=== PATIENT | male | born 1925 | race Caucasian/White ===

== ENCOUNTER 2016-05-28 16:43 | Emergency (ER) | payer MEDICARE, OTHER ==
[2016-05-28 17:01] VITALS: BP 142/73
[2016-05-28 17:50] LABS: CHLORIDE,CL 104 mmol/L (98-115); SODIUM,NA 142 mmol/L (136-145)
--- NOTE | 2016-05-28 17:59 | EDM.PDOC ---
ED HPI RENAL/ - General Chief Complaint: Genitourinary Problem Stated Complaint: hematuria Time Seen by Provider: 05/28/16 17:35 Source of Information: Reports: Patient History Limitations: Reports: No limitations - History of Present Illness INITIAL COMMENTS - FREE TEXT/NARRATIVE: Patient presents with hematuria. He noticed this yesterday and continuing this morning. 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 He has a known history of prostate cancer; he isn't sure how long he's had it but guesses at least a year. He has been to [place] but not sure if he's seen a Urologist or if he's had any treatment for the cancer. He did just last week have a bone scan to look for metastasis which he was told was clear. His says they were told it doesn't seem to be spreading. Pt doesn't have any pain at all, just the hematuria. He hasn't noticed any blood in stools. - Related Data Allergies/ADRs: Allergies Allergy/AdvReac Type Severity Reaction Status Date / Time No Known Drug Allergies Allergy Other Verified 05/28/16 17:02 Home Meds: Home Meds Aspirin [Halfprin] 81 mg PO DAILY 07/25/13 [History] Omeprazole [Prilosec] 20 mg PO BEDTIME 07/25/13 [History] Cyanocobalamin (Vitamin B-12) [B-12] 500 mcg PO FREDDIE 12/21/13 [History] Insulin Aspart [Novolog Flexpen] 8 units SUBCUT ACBREAKFAST 09/22/14 [History] Insulin Detemir [Levemir Flextouch] 15 units SQ BID 05/28/16 [History] Metoclopramide [Reglan] 10 mg PO QIDACANDBED 05/28/16 [History] Past Medical History Other Oncologic History: Patient states history of cancer but doesn't remember what kind. Had abdominal surgery for it. Social & Family History - Tobacco Use Smoking Status *Q: Former Smoker Years of Tobacco use: 50 Used Tobacco, but Quit: No Second Hand Smoke Exposure: No - Alcohol Use Days Per Week of Alcohol Use: 7 Number of Drinks Per Day: 1 Total Drinks Per Week: 7 - Recreational Drug Use Recreational Drug Use: No - Living Situation & Occupation Living situation: Reports: Occupation: retired ED ROS GENERAL - Review of Systems Review Of Systems: See Below Constitutional: Denies: fever, chills HEENT: Denies: Throat pain Respiratory: Denies: Shortness of Breath, Cough Cardiovascular: Reports: Edema (sometimes but not severe). Denies: Chest pain, Syncope GI/Abdominal: Reports: Decreased appetite (has noticed this for awhile and is taking Reglan). Denies: Abdominal pain, Constipation, Diarrhea : Reports: hematuria. Denies: dysuria, flank pain, pain Musculoskeletal: Reports: no symptoms Skin: Denies: cyanosis, jaundice, mottled, pallor, diaphoresis Neurological: Denies: Confusion, Dizziness, Headache Psychiatric: Denies: Agitation, Anxiety, Confusion Hematologic/Lymphatic: Denies: anemia, easy bleeding (no blood thinners) ED EXAM, RENAL/ - Physical Exam Exam: See Below Exam Limited By: No limitations General Appearance: alert, WD/WN, no apparent distress Eye Exam: bilateral eye: EOMI, normal inspection, PERRL Ears: normal external exam Nose: normal inspection, no blood Throat/Mouth: Normal inspection, Normal lips, Normal voice, No airway compromise Head: atraumatic, normocephalic Respiratory/Chest: no respiratory distress, lungs clear, normal breath sounds, no accessory muscle use Cardiovascular: regular rate, rhythm, no edema, no murmur GI/Abdominal: normal bowel sounds, soft, non tender, no organomegaly, no distention Rectal (Males) Exam: Normal rectal tone, BPH, Heme - stool, Other (Prostate is significantly enlarged but not boggy or nodular). No: Black stool, Bloody Stool , Decreased rectal tone, Fecal impaction, Hemorrhoids, Prostate nodule, Tenderness Back Exam: No: CVA tenderness (L), CVA tenderness (R) Extremities: normal inspection, normal range of motion, non-tender, no pedal edema Neurological: alert, oriented, normal cognition, no motor/sensory deficits Psychiatric: normal affect, normal mood Skin Exam: Warm, Dry, Intact, Normal color, No rash Course - Vital Signs Last Recorded V/S: Last Vital Signs Temp 97.7 F 05/28/16 16:58 Pulse 102 H 05/28/16 16:58 Resp 20 05/28/16 16:58 BP 142/73 H 05/28/16 16:58 Pulse Ox 93 L 05/28/16 16:58 - Orders/Labs/Meds Orders: Active Orders 24 hr Category Date Time Status BASIC METABOLIC PANEL,BMP [CHEM] Stat Lab 05/28/16 17:20 Received CBC WITH AUTO DIFF [HEME] Stat Lab 05/28/16 17:20 Results MANUAL DIFFERENTIAL QA/NC [HEME] Stat Lab 05/28/16 17:20 Results UA W/MICROSCOPIC [URIN] Stat Lab 05/28/16 17:18 Uncollected Labs: Laboratory Tests 05/28/16 Range/Units 17:20 WBC 9.4 (5.0-10.0) 10^3/uL RBC 4.47 L (4.50-6.00) 10^6/uL Hgb 11.8 L (13.0-17.0) g/dL Hct 36.2 L (40.0-52.0) % MCV 81.0 L (82.0-92.0) fL MCH 26.4 L (27.0-31.0) pg MCHC 32.6 (32.0-36.0) g/dL RDW 15.7 H (11.5-14.5) % Plt Count 195 (150-300) 10^3/uL MPV 9.2 (7.4-10.4) fL Add Manual Diff Yes - Re-Assessments/Exams Free Text/Narrative Re-Assessment/Exam: 05/28/16 18:19 Hg 11.8; other labs and hemoccult are normal. Discussed findings with pt and his . Will culture urine since there was too much blood to determine UTI or not. Since he doesn't know if he's seen a urologist we will find out some of this tomorrow and try to get him in with one; I presume he has seen on in [place] when he was up there. Pt discharged in stable condition. Departure - Departure Time of Disposition: 18:09 Disposition: Home, Self-Care 01 Condition: good Clinical Impression: Gross hematuria, Prostate cancer Forms: ED Department Discharge Additional Instructions: 1. You need to see a Urologist if this blood in the urine continues. We will try to find out who the urologist you saw in [place] is. We will call you about seeing them in the near future. 2. If you start feeling very weak or faint you should see a doctor or return to ER. - My Orders Last 24 Hours: My Active Orders 05/28/16 17:18 UA W/MICROSCOPIC [URIN] Stat 05/28/16 17:20 BASIC METABOLIC PANEL,BMP [CHEM] Stat CBC WITH AUTO DIFF [HEME] Stat MANUAL DIFFERENTIAL QA/NC [HEME] Stat - Assessment/Plan Last 24 Hours: My Active Orders 05/28/16 17:18 UA W/MICROSCOPIC [URIN] Stat 05/28/16 17:20 BASIC METABOLIC PANEL,BMP [CHEM] Stat CBC WITH AUTO DIFF [HEME] Stat MANUAL DIFFERENTIAL QA/NC [HEME] Stat
== END 2016-05-28 18:25 | disposition home or self-care (01) ==
LOC: KA.ED 16:43
DX: R31.0 Gross hematuria (principal); C61 Malignant neoplasm of prostate; Z79.82 Long term (current) use of aspirin; Z79.4 Long term (current) use of insulin; Z87.891 Personal history of nicotine dependence
CPT/HCPCS: 36415; 80048; 81001; 82272; 84153; 85025; 87086; 99283

== ENCOUNTER 2016-05-30 09:50 | Emergency (ER) | payer MEDICARE, OTHER ==
[2016-05-30 09:58] VITALS: BP 154/76
[2016-05-30] MEDS ORDERED: cefTRIAXone 1 GM in Sodium Chloride 0.9% 50 ML IV ONE (10:52)
[2016-05-30] MEDS ORDERED: cefTRIAXone 1 GM Vial ONE ×2 (11:02→11:05)
[2016-05-30] MEDS ORDERED: Lidocaine 1% 20 ML MDV ONE (11:07)
--- NOTE | 2016-05-30 11:15 | EDM.PDOC ---
ED HPI RENAL/ - General Chief Complaint: Genitourinary Problem Stated Complaint: blood in urine Time Seen by Provider: 05/30/16 10:30 Source of Information: Reports: Patient, Family History Limitations: Reports: No limitations - History of Present Illness INITIAL COMMENTS - FREE TEXT/NARRATIVE: PT DEVELOPED BLOOD IN URINE SEVERAL DAYS AGO. SEEN HERE IN ER /4. NOW WITH DYSURIA, BUT DENIES ABD PAIN, FEVER, N/V/D, BLOOD IN STOOL, TESTICULAR PAIN, FLANK PAIN, OR CHANGE IN MEDICATION. PER PATIENT AND FAMILY, THEY DECIDED 7 YEARS AGO TO NOT UNDERGO ANY INTERVENTION FOR PROSTATE CANCER. Timing/Duration: Reports: Day(s): Location: Reports: urethral Quality: Reports: burning Severity: mild Worsens with: Reports: urinating Associated Symptoms: Reports: burning, dysuria, frequency, urgency, voiding small amounts - Related Data Allergies/ADRs: Allergies Allergy/AdvReac Type Severity Reaction Status Date / Time No Known Drug Allergies Allergy Other Verified 05/30/16 10:29 Home Meds: Home Meds Aspirin [Halfprin] 81 mg PO DAILY 07/25/13 [History] Omeprazole [Prilosec] 20 mg PO BEDTIME 07/25/13 [History] Cyanocobalamin (Vitamin B-12) [B-12] 500 mcg PO FREDDIE 12/21/13 [History] Insulin Aspart [Novolog Flexpen] 8 units SUBCUT ACBREAKFAST 09/22/14 [History] Insulin Detemir [Levemir Flextouch] 15 units SQ BID 05/28/16 [History] Metoclopramide [Reglan] 10 mg PO QIDACANDBED 05/28/16 [History] Ciprofloxacin HCl [Cipro] 500 mg PO BID #20 tablet 05/30/16 [Rx] Past Medical History HEENT History: Reports: Impaired vision Genitourinary History: Reports: Other (see below) Other Genitourinary History: hematuria, h/o prostate ca Musculoskeletal History: Reports: Arthritis Endocrine/Metabolic History: Reports: Diabetes, type II Hematologic History: Reports: B12 deficiency Oncologic (Cancer) History: Reports: Prostate Other Oncologic History: Patient states history of cancer but doesn't remember what kind. Had abdominal surgery for it. - Past Surgical History HEENT Surgical History: Reports: None Male Surgical History: Reports: Other (see below) Other Male Surgeries/Procedures: cystoscopy Musculoskeletal Surgical History: Reports: None Social & Family History - Family History Family Medical History: Noncontributory - Tobacco Use Smoking Status *Q: Former Smoker Years of Tobacco use: 50 Used Tobacco, but Quit: No Second Hand Smoke Exposure: No - Caffeine Use Caffeine Use: Reports: Coffee - Alcohol Use Days Per Week of Alcohol Use: 7 Number of Drinks Per Day: 1 Total Drinks Per Week: 7 - Recreational Drug Use Recreational Drug Use: No - Living Situation & Occupation Living situation: Reports: Occupation: retired ED ROS GENERAL - Review of Systems Review Of Systems: ROS reveals no pertinent complaints other than HPI. Constitutional: Reports: no symptoms HEENT: Reports: No symptoms Respiratory: Reports: No Symptoms Cardiovascular: Reports: No symptoms Endocrine: Reports: no symptoms GI/Abdominal: Reports: No symptoms. Denies: Abdominal pain : Reports: dysuria, frequency, hematuria, urgency. Denies: flank pain Musculoskeletal: Reports: no symptoms Skin: Reports: no symptoms Neurological: Reports: No Symptoms Psychiatric: Reports: No symptoms Hematologic/Lymphatic: Reports: no symptoms Immunologic: Reports: no symptoms ED EXAM, RENAL/ - Physical Exam Exam: See Below Exam Limited By: No limitations General Appearance: alert, WD/WN, no apparent distress Nose: normal inspection, no blood Throat/Mouth: Normal inspection, Normal oropharynx, No airway compromise Head: atraumatic, normocephalic Neck: normal inspection Respiratory/Chest: no respiratory distress, lungs clear, normal breath sounds, no accessory muscle use, chest non-tender Cardiovascular: regular rate, rhythm, no murmur GI/Abdominal: normal bowel sounds, soft, non tender, no organomegaly, no distention, no abnormal bruit, no mass (Male) Exam: No hernia, Normal inspection Back Exam: normal inspection. No: CVA tenderness (L), CVA tenderness (R) Extremities: normal inspection, no pedal edema Neurological: alert, oriented, normal cognition Psychiatric: normal affect, normal mood Skin Exam: Warm, Dry, Intact, Normal color, No rash Lymphatic: no adenopathy Course - Vital Signs Last Recorded V/S: Last Vital Signs Temp 97.8 F 05/30/16 09:56 Pulse 106 H 05/30/16 09:56 Resp 14 05/30/16 09:56 BP 154/76 H 05/30/16 09:56 Pulse Ox 94 L 05/30/16 09:56 - Orders/Labs/Meds Orders: Active Orders 24 hr Category Date Time Status CULTURE URINE [RM] Stat Lab 05/30/16 10:52 Ordered Code Status [Resuscitation Status] Stat Resus Stat 05/30/16 10:31 Ordered Labs: Laboratory Tests 05/30/16 Range/Units 10:00 Specimen Type Urinvoid Urine Color Red H (YELLOW) Urine Appearance Turbid H (CLEAR) Urine pH >= 9.0 (5.0-9.0) Ur Specific Otto <= 1.005 (1.005-1.030) Urine Protein >=300 H (NEGATIVE) mg/dL Urine Glucose (UA) 250 H (NEGATIVE) mg/dL Urine Ketones 80 H (NEGATIVE) mg/dL Urine Occult Blood Large H (NEGATIVE) Urine Nitrite Positive H (NEGATIVE) Urine Bilirubin Large H (NEGATIVE) Urine Urobilinogen >=8.0 H (0.2-1.0) E.U./dL Ur Leukocyte Esterase Large H (NEGATIVE) Urine RBC Packed /HPF Urine WBC Semi-packed /HPF Ur Epithelial Cells Occasional /LPF Other Crystals Few /HPF Urine Bacteria Moderate H (NONE TO FEW) /HPF Hyaline Casts Few H (NEGATIVE) /LPF Meds: Medications Discontinued Medications Generic Name Dose Route Start Last Admin Trade Name Torie PRN Reason Stop Dose Admin Ceftriaxone Sodium Confirm 05/30/16 11:02 Rocephin Administered 05/30/16 11:03 Dose 1 gm .ROUTE .STK-MED ONE Ceftriaxone Sodium Confirm 05/30/16 11:05 Rocephin Administered 05/30/16 11:06 Dose 1 gm .ROUTE .STK-MED ONE Ceftriaxone Sodium 1 gm/ 50 mls @ 200 mls/hr 05/30/16 10:52 Sodium Chloride IV 05/30/16 11:06 ONETIME ONE - Re-Assessments/Exams Free Text/Narrative Re-Assessment/Exam: 05/30/16 11:16 PT AFEBRILE, NONTOXIC APPEARING, VSS. ROCEPHIN 1GM GIVEN. WILL START ON CIPRO AND F/U IN 3 -5 DAYS Departure - Departure Time of Disposition: 11:17 Disposition: Home, Self-Care 01 Condition: good Clinical Impression: UTI, Urinary tract infectious disease, Hematuria syndrome, Gross hematuria, Prostate cancer Instructions: Urinary Tract Infection, Adult, [id number], Hematuria, Adult Forms: ED Department Discharge - My Orders Last 24 Hours: My Active Orders 05/30/16 10:31 Code Status [Resuscitation Status] Stat 05/30/16 10:52 CULTURE URINE [RM] Stat - Assessment/Plan Last 24 Hours: My Active Orders 05/30/16 10:31 Code Status [Resuscitation Status] Stat 05/30/16 10:52 CULTURE URINE [RM] Stat Assessment:: URI / HEMATURIA Plan: CIPRO / RECHECK IN 3 -5 DAYS
[2016-05-30] MEDS ORDERED: cefTRIAXone 1 GM Vial IM ONE (11:17)
== END 2016-05-30 11:25 | disposition home or self-care (01) ==
LOC: KA.ED 09:50
DX: N39.0 Urinary tract infection, site not specified (principal); C61 Malignant neoplasm of prostate; E11.9 Type 2 diabetes mellitus without complications; Z79.82 Long term (current) use of aspirin; Z79.899 Other long term (current) drug therapy; Z87.891 Personal history of nicotine dependence
CPT/HCPCS: 81001; 96372; 99283; J0696; 99284

== ENCOUNTER 2016-06-17 07:03 | Day surgery (SDC) | payer MEDICARE, OTHER ==
[~2016-06-17 07:03] MED LIST: Lidocaine 2% Jelly 5 ML Tube ONE; Sodium Chloride 0.9% 1,000 ML IV SCH; Sodium Chloride 0.9% 5 ML Syringe FLUSH PRN
[2016-06-17] MEDS ORDERED: Ketamine 500 mg/10 ML MDV ONE (07:20)
[2016-06-17] MEDS ORDERED: Midazolam 1 MG/ML 2 ML SDV ONE (07:21)
[2016-06-17] MEDS ORDERED: fentaNYL 100 MCG/2 ML SDV ONE (07:21)
[2016-06-17] MEDS ORDERED: Propofol 200 MG/20 ML SDV ONE ×2 (07:21→07:57)
[2016-06-17] MEDS ORDERED: ceFAZolin 1 GM Vial ONE (07:57)
[2016-06-17] MEDS ORDERED: fentaNYL 100 MCG/2 ML SDV IV ONE (08:20)
[2016-06-17] MEDS ORDERED: Ketamine 500 mg/10 ML MDV IV ONE (08:20)
[2016-06-17] MEDS ORDERED: Midazolam 1 MG/ML 2 ML SDV IV ONE (08:20)
[2016-06-17] MEDS ORDERED: Propofol 200 MG/20 ML SDV IV ONE (08:20)
[2016-06-17] MEDS ORDERED: ceFAZolin 1 GM Vial IV ONE (08:20)
[2016-06-17] MEDS ORDERED: Lidocaine 2% Jelly 10 ML Urojet ONE (08:50)
--- NOTE | 2016-06-17 09:07 | PCM.OPNOTE ---
[id number] and fulgration of prostate. Findings: numerous bleeders were identified in the prostatic fossa. Pre Op Diagnosis: as above. Anesthesia Technique: MAC Primary Surgeon: Herminio Alegria Complications: None Condition: Good Free Text/Narrative:: Preoperative diagnosis: Hematuria. Status post TURP. History of prostate carcinoma. Postoperative diagnosis: As above. Numerous bleeders are present in the prostatic fossa and these were cauterized. procedure performed: Cystoscopy and fulguration of prostatic bleeders. Informed consent was obtained from the patient regarding this procedure. He wished to proceed. Possible complications include perforation the bladder, infection and other unknown complicationsdiscussed with him.. The patient decided to proceed. He was taken to the OR and given a satisfactory general anesthetic. He was then kept in the lithotomy position. His genitals were thoroughly prepped and draped in usual fashion. Cystoscopy was a completed using a 20 [place] operative sheath and an [employer] cystoscope. There were numerous bleeders in the prostatic fossa. There was evidence of a previous TURP. There was mild trabeculation noted within the bladder. No other abnormality was detected in the bladder. The numerous bleeders in the prostatatic fossa were cauterized with a ball electrode. Returning urine was clear. The instruments were removed. The patient tolerated the procedure well. There were no complications. He was sent to the recovery room in an excellent condition.
[2016-06-17 10:30] VITALS: BP 149/79
== END 2016-06-17 11:20 | disposition home or self-care (01) ==
LOC: KA.SDS 07:03
PROVIDERS: ATTEND Family Medicine
DX: N99.820 Postprocedural hemorrhage of a genitourinary system organ or structure following a genitourinary system procedure (principal); Z85.46 Personal history of malignant neoplasm of prostate; I10 Essential (primary) hypertension; E11.9 Type 2 diabetes mellitus without complications; I49.3 Ventricular premature depolarization; E78.5 Hyperlipidemia, unspecified; K21.9 Gastro-esophageal reflux disease without esophagitis; Z98.890 Other specified postprocedural states; Z79.899 Other long term (current) drug therapy; Z86.73 Personal history of transient ischemic attack (TIA), and cerebral infarction without residual deficits; Z79.82 Long term (current) use of aspirin; Z79.4 Long term (current) use of insulin
CPT/HCPCS: 00910; 52214; 82962; 93005; J0690; J2250; J2704; J3010; J7030

== ENCOUNTER 2016-06-23 22:45 | Emergency (ER) | payer MEDICARE, OTHER ==
[2016-06-23 22:52] VITALS: BP 164/69
[2016-06-23] MEDS ORDERED: diphenhydrAMINE 50 MG/ML SDV IVPUSH ONE (23:15)
[2016-06-23] MEDS ORDERED: Sodium Chloride 0.9% 1,000 ML IV ONE (23:15)
[2016-06-23] MEDS ORDERED: Metoclopramide 10 MG/2 ML SDV IVPUSH ONE (23:15)
[2016-06-23] MEDS ORDERED: Ketorolac 30 MG/ML SDV IVPUSH ONE (23:15)
[2016-06-23] MEDS ORDERED: Sodium Chloride 0.9% 5 ML Syringe FLUSH PRN (23:16)
--- NOTE | 2016-06-23 23:31 | EDM.PDOC ---
ED HPI HEADACHE COMPLAINT - General Chief Complaint: Headache Stated Complaint: HUNT Time Seen by Provider: 06/23/16 23:15 Source of Information: Reports: Patient History Limitations: Reports: No limitations - History of Present Illness INITIAL COMMENTS - FREE TEXT/NARRATIVE: PT STATES HE HAS HAD A SHARP FRONTAL HUNT ON/OFF FOR 2 WEEKS. SEEN AT [facility] AND HAD CT PERFORMED ON 06/20/16. RADIOLOGY RESULTS WERE NEGATIVE FOR ACUTE INTRACRANIAL PROCESS. PAIN IS IN FOREHEAD AND BEHIND EYES, SHARP AND WAX/ WANES. DENIES FALL, N/V, CP, SOB, CHANGE IN MEDICATION, OR FEVER. 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) - Related Data Allergies/ADRs: Allergies Allergy/AdvReac Type Severity Reaction Status Date / Time No Known Drug Allergies Allergy Other Verified 06/23/16 22:47 Home Meds: Home Meds Aspirin [Halfprin] 81 mg PO DAILY 07/25/13 [History] Omeprazole [Prilosec] 20 mg PO BEDTIME 07/25/13 [History] Cyanocobalamin (Vitamin B-12) [B-12] 500 mcg PO FREDDIE 12/21/13 [History] Insulin Aspart [Novolog Flexpen] 8 units SUBCUT ACBREAKFAST 09/22/14 [History] Insulin Detemir [Levemir Flextouch] 12 units SQ BID 05/28/16 [History] Metoclopramide [Reglan] 10 mg PO QIDACANDBED 05/28/16 [History] Ascorbic Acid [Vitamin C] 500 mg PO DAILY 06/14/16 [History] Leuprolide [Lupron Depot] 22.5 mg IM ASDIRECTED 06/14/16 [History] Metoprolol Succinate [Toprol XL] 50 mg PO DAILY 06/14/16 [History] Simvastatin [Zocor] 40 mg PO BEDTIME 06/14/16 [History] Tamsulosin [Flomax] 0.4 mg PO PCBREAKFAST 06/14/16 [History] Triamcinolone Acetonide [Triamcinolone Acetonide 0.1% Crm] 15 gm TOP TID [History] metFORMIN HCl [Metformin HCl] 1,000 mg PO BID 06/14/16 [History] Past Medical History HEENT History: Reports: Impaired vision Genitourinary History: Reports: Other (see below) Other Genitourinary History: hematuria, h/o prostate ca Musculoskeletal History: Reports: Arthritis Endocrine/Metabolic History: Reports: Diabetes, type II Hematologic History: Reports: B12 deficiency Oncologic (Cancer) History: Reports: Prostate Other Oncologic History: Patient states history of cancer but doesn't remember what kind. Had abdominal surgery for it. - Past Surgical History HEENT Surgical History: Reports: None Male Surgical History: Reports: Other (see below) Other Male Surgeries/Procedures: cystoscopy Musculoskeletal Surgical History: Reports: None Social & Family History - Family History Family Medical History: Noncontributory - Tobacco Use Smoking Status *Q: Former Smoker Years of Tobacco use: 50 Used Tobacco, but Quit: No Second Hand Smoke Exposure: No - Caffeine Use Caffeine Use: Reports: Coffee - Alcohol Use Days Per Week of Alcohol Use: 7 Number of Drinks Per Day: 1 Total Drinks Per Week: 7 - Recreational Drug Use Recreational Drug Use: No - Living Situation & Occupation Living situation: Reports: Occupation: retired ED ROS GENERAL - Review of Systems Review Of Systems: ROS reveals no pertinent complaints other than HPI. Constitutional: Reports: no symptoms HEENT: Reports: No symptoms Respiratory: Reports: No Symptoms Cardiovascular: Reports: No symptoms Endocrine: Reports: no symptoms GI/Abdominal: Reports: No symptoms : Reports: no symptoms Musculoskeletal: Reports: no symptoms Skin: Reports: no symptoms Neurological: Reports: Headache Psychiatric: Reports: No symptoms Hematologic/Lymphatic: Reports: no symptoms Immunologic: Reports: no symptoms - Physical Exam Exam: See Below Exam Limited By: No limitations General Appearance: alert, WD/WN, no apparent distress Eye Exam: bilateral eye: normal inspection Ears: normal external exam, normal canal, normal TMs Nose: normal inspection, normal mucosa, no blood Throat/Mouth: Normal inspection, Normal oropharynx, Normal voice, No airway compromise Head Exam: atraumatic, normocephalic Neck: normal inspection, supple, non-tender, full range of motion Respiratory/Chest: no respiratory distress, lungs clear, normal breath sounds, no accessory muscle use, chest non-tender Cardiovascular: regular rate, rhythm, no murmur GI/Abdominal: normal bowel sounds, soft, non tender Neuro Exam (Abbreviated): alert, oriented, CN II-XII intact, normal cognition, no motor/sensory deficits Extremities: normal inspection Psychiatric: normal affect, normal mood Skin Exam: Warm, Dry, Intact, Normal color, No rash Course - Vital Signs Last Recorded V/S: Last Vital Signs Temp 97.6 F 06/23/16 22:49 Pulse 84 06/23/16 22:49 Resp 18 06/23/16 22:49 BP 164/69 H 06/23/16 22:49 Pulse Ox 94 L 06/23/16 22:49 - Orders/Labs/Meds Orders: Active Orders 24 hr Category Date Time Status Peripheral IV Care [RC] . DIRECTED Care 06/23/16 23:16 Ordered Ketorolac [Toradol] Med 06/23/16 23:15 Once 30 mg IVPUSH ONETIME ONE Metoclopramide [Reglan] Med 06/23/16 23:15 Once 5 mg IVPUSH ONETIME ONE Sodium Chloride 0.9% @ 999 MLS/HR (1000ml) Med 06/23/16 23:15 Ordered Sodium Chloride 0.9% [Normal Saline] 1,000 ml IV .BOLUS Sodium Chloride 0.9% [Syrex Flush] Med 06/23/16 23:16 Ordered 5 ml FLUSH Q8HR PRN diphenhydrAMINE [Benadryl] Med 06/23/16 23:15 Once 12.5 mg IVPUSH ONETIME ONE Peripheral IV Insertion Adult [OM.PC] Routine Oth 06/23/16 23:16 Ordered - Re-Assessments/Exams Free Text/Narrative Re-Assessment/Exam: 06/23/16 23:48 PT AFEBRILE, NONTOXIC APPEARING, VSS, HUNT RESOLVED. FAMILY AT BEDSIDE. WILL HAVE HIM F/U AT [facility] Departure - Departure Time of Disposition: 23:49 Disposition: Home, Self-Care 01 Condition: good Clinical Impression: Headache Qualifiers: Headache type: unspecified Headache chronicity pattern: unspecified pattern Intractability: not intractable Qualified Code(s): R51 - Headache Instructions: Dehydration, Elderly, [id number], General Headache Without Cause, [id number] Forms: ED Department Discharge Additional Instructions: FOLLOW UP AT [facility] IN NEXT 1-2 DAYS - My Orders Last 24 Hours: My Active Orders 06/23/16 23:15 Ketorolac [Toradol] 30 mg IVPUSH ONETIME ONE Metoclopramide [Reglan] 5 mg IVPUSH ONETIME ONE Sodium Chloride 0.9% @ 999 MLS/HR (1000ml) Sodium Chloride 0.9% [Normal Saline] 1,000 ml IV .BOLUS diphenhydrAMINE [Benadryl] 12.5 mg IVPUSH ONETIME ONE 06/23/16 23:16 Peripheral IV Care [RC] . DIRECTED Sodium Chloride 0.9% [Syrex Flush] 5 ml FLUSH Q8HR PRN Peripheral IV Insertion Adult [OM.PC] Routine - Assessment/Plan Last 24 Hours: My Active Orders 06/23/16 23:15 Ketorolac [Toradol] 30 mg IVPUSH ONETIME ONE Metoclopramide [Reglan] 5 mg IVPUSH ONETIME ONE Sodium Chloride 0.9% @ 999 MLS/HR (1000ml) Sodium Chloride 0.9% [Normal Saline] 1,000 ml IV .BOLUS diphenhydrAMINE [Benadryl] 12.5 mg IVPUSH ONETIME ONE 06/23/16 23:16 Peripheral IV Care [RC] . DIRECTED Sodium Chloride 0.9% [Syrex Flush] 5 ml FLUSH Q8HR PRN Peripheral IV Insertion Adult [OM.PC] Routine Assessment:: HEADACHE Plan: FLU AT [facility]
== END 2016-06-24 00:17 | disposition home or self-care (01) ==
LOC: KA.ED 22:45
DX: R51 Headache (principal); E11.9 Type 2 diabetes mellitus without complications; H54.7 Unspecified visual loss; Z87.891 Personal history of nicotine dependence; Z79.82 Long term (current) use of aspirin; Z79.4 Long term (current) use of insulin
CPT/HCPCS: 96361; 96374; 96375; 99283; 99284; J1200; J1885; J2765; J7030

== ENCOUNTER 2016-06-27 17:31 | Inpatient (IN) | payer MEDICARE, OTHER ==
[2016-06-27] MEDS ORDERED: Ketorolac 30 MG/ML SDV IVPUSH PRN (17:52)
[2016-06-27] MEDS ORDERED: methylPREDNISolone Sodium Succinate 125 MG/2 ML SDV IVPUSH SCH (18:00)
[2016-06-27] MEDS ORDERED: Acetaminophen 325 MG Tab PO PRN (18:06)
[2016-06-27 18:43] LABS: CHLORIDE,CL 100 mmol/L (98-115); SODIUM,NA 136 mmol/L (136-145)
[2016-06-27] MEDS ORDERED: Non-Formulary Medication 1 Each (Omeprazole [Prilosec] 20 MG) PO SCH (21:00)
[2016-06-27] MEDS ORDERED: Insulin Detemir 100 Units/ML 3 ML Pen SUBCUT SCH (21:00)
[2016-06-27] MEDS ORDERED: Non-Formulary Medication 1 Each (Metformin Hcl [Metformin Hcl] 1,000 MG) PO SCH (21:00)
[2016-06-27] MEDS: Ketorolac 30 MG/ML SDV IVPUSH PRN (21:16)
[2016-06-27] MEDS: Sodium Chloride 0.9% 5 ML Syringe FLUSH PRN (21:18)
[2016-06-27] MEDS: Omeprazole 20 MG Cap.CR PO SCH (21:19)
[2016-06-27] MEDS: metFORMIN 500 MG Tab.ER PO SCH (21:19)
[2016-06-27] MEDS: Magnesium Hydroxide 400 MG/5 ML Susp 30 ML Cup PO SCH (21:19)
[2016-06-27] MEDS: traMADol 50 MG Tab PO PRN (21:19)
[2016-06-27] MEDS: Insulin Detemir 100 Units/ML 3 ML Pen SUBCUT SCH (21:21)
[2016-06-27] MEDS: Insulin Aspart 100 Units/ML 3 ML Pen SUBCUT SCH (21:24)
[2016-06-28] MEDS: Ketorolac 30 MG/ML SDV IVPUSH PRN ×2 (06:49→15:21)
[2016-06-28] MEDS: Sodium Chloride 0.9% 5 ML Syringe FLUSH PRN (06:51)
[2016-06-28 07:52] LABS: CHLORIDE,CL 101 mmol/L (98-115); SODIUM,NA 138 mmol/L (136-145)
[2016-06-28] MEDS: Insulin Aspart 100 Units/ML 3 ML Pen SUBCUT SCH ×4 (08:00→21:40)
[2016-06-28] MEDS ORDERED: Aspirin 81 MG Tab.EC PO SCH ×2 (08:00→09:00)
[2016-06-28] MEDS: Lutein/Minerals/Vitamins A, C & E Tab PO SCH (08:03)
[2016-06-28] MEDS: Magnesium Hydroxide 400 MG/5 ML Susp 30 ML Cup PO SCH ×2 (08:03→21:44)
[2016-06-28] MEDS: Ascorbic Acid 500 MG Tab PO SCH (08:03)
[2016-06-28] MEDS: metFORMIN 500 MG Tab.ER PO SCH (08:03)
[2016-06-28] MEDS: Insulin Detemir 100 Units/ML 3 ML Pen SUBCUT SCH ×2 (08:03→21:42)
[2016-06-28] MEDS ORDERED: Cyanocobalamin (Vitamin B12) 500 MCG Tab PO SCH (09:00)
[2016-06-28] MEDS ORDERED: Ascorbic Acid 500 MG Tab PO SCH (09:00)
[2016-06-28] MEDS: Nicotine 7 MG/24 Hr Patch TRDERM SCH (11:43)
[2016-06-28] MEDS: Acetaminophen 650 MG Tab.ER PO SCH ×3 (11:43→21:44)
[2016-06-28] MEDS: Cyanocobalamin (Vitamin B12) 500 MCG Tab PO SCH (12:23)
--- NOTE | 2016-06-28 13:14 | PN ---
06/28/2016 PATIENT NAME: VALENCIA TIPTON CHIEF COMPLAINT: Overall does feel better, headaches somewhat receding, otherwise not doing too bad. He did have a continuous headache when he came in. BRIEF HISTORY: This 89-year-old gentleman has been having ongoing headaches for about a month, questionable etiology, and possible giant cell arteritis. He recently underwent a right-sided temporal artery biopsy. That is still pending. He still had ongoing headaches. Head CT did not show any occult pathology. He did have an elevated ESR of 39 in the [facility]. He also did have some right-sided visual acuity deficit in his right eye, pain around 5 to 10, more constant, more frontal. A recent CT showed that he had negative for any acute changes other than age-related changes. He has no prior history of a headaches. He was initiated on prednisone oral at the [facility]; however, Neurology was consulted and did recommend hospitalization with high dose IV Solu-Medrol. PHYSICAL EXAMINATION: VITAL SIGNS: Today, blood pressure is good at 133/74, temperature 97.0, heart rate 16, and O2 sats 95%. GENERAL: The patient is lucid, polite, sitting up in bed, complains of only a mild headache, more in the frontal area. HEENT: Pupils are equal and reactive to light and accommodation. No nystagmus noted. No exotropia noted. No tenderness to bilateral temporal area. He does have a scar from status post recent biopsy that is clean, dry, and intact with bandages on there. The patient has no nystagmus. CARDIOVASCULAR: Regular rate and rhythm. No longer tachycardic. No lymphadenopathy. NEUROLOGICAL: No focal deficit. He is alert and oriented. Cranial nerves 2 through 12 grossly intact. LABORATORY DATA: White count yesterday was slightly elevated around 12,000, today 7.4, percentage of neutrophils slightly elevated around 85%, hemoglobin 9.4, hematocrit 28.7, that is down about 1 g from yesterday. Sodium and potassium are normal. Creatinine clearance and GFR are normal. BUN and creatinine are normal. Liver functions are normal. Glucose 227, he is a diabetic. IMPRESSION/PLAN: 1. Possible giant cell arteritis, biopsy pending. We are treating more empirically right now, ongoing high dose Solu-Medrol 1000 mg daily for three days, and he will be placed on oral 60 mg of prednisone. In the meantime, decrease Toradol to 15 mg limited doses, change from p.r.n. acetaminophen to Tylenol Arthritis scheduled. Since he is on prednisone, we will hold aspirin right now. Give Tums 1000 mg q.6 p.r.n. Nonsteroidal cream to the back and neck. 2. Hypertension. Blood pressure really good right now. 3. History of transient cerebral ischemia. At this time, we will hold aspirin just temporarily due to some GI upset. 4. Diabetes type 2 with mild steroid-induced hyperglycemia. We will add low- dose Lantus. 5. Hypercholesterolemia. 6. Tobacco dependency for chew. We will add low-dose nicotine patch. Upon discussion with the family, we will keep the patient in the hospital acute status right now with ongoing high dose Solu-Medrol, monitor for any visual acuity changes or ongoing headache or any sequela. /[id number]/MODL
[2016-06-28] MEDS: 20% Ketoprofen 12 GM, 3% Menthol 1.8 GM & 8% Trolamine Salicylate 46.2 GM TOP PRN ×3 (15:12)
[2016-06-28] MEDS ORDERED: LORazepam 0.5 MG Tab PO ONE (16:30)
[2016-06-28] MEDS ORDERED: LORazepam 0.5 MG Tab ONE (16:30)
[2016-06-28] MEDS ORDERED: Bisacodyl 10 MG Supp RECTAL ONE (16:40)
[2016-06-28] MEDS ORDERED: Bisacodyl 10 MG Supp ONE (16:41)
[2016-06-28] MEDS: traMADol 50 MG Tab PO PRN (16:47)
[2016-06-28] MEDS: metFORMIN 500 MG Tab PO SCH (18:05)
[2016-06-28] MEDS: Omeprazole 20 MG Cap.CR PO SCH (21:44)
[2016-06-29] MEDS: traMADol 50 MG Tab PO PRN (00:39)
[2016-06-29] MEDS: Ketorolac 30 MG/ML SDV IVPUSH PRN ×2 (00:40→21:36)
[2016-06-29] MEDS: Sodium Chloride 0.9% 5 ML Syringe FLUSH PRN ×2 (00:43→18:42)
[2016-06-29] MEDS: Insulin Aspart 100 Units/ML 3 ML Pen SUBCUT SCH ×4 (07:39→21:35)
[2016-06-29] MEDS: Nicotine 7 MG/24 Hr Patch TRDERM SCH (08:49)
[2016-06-29] MEDS: metFORMIN 500 MG Tab PO SCH ×2 (08:49→18:05)
[2016-06-29] MEDS: Insulin Detemir 100 Units/ML 3 ML Pen SUBCUT SCH ×2 (08:50→21:33)
[2016-06-29] MEDS: Lutein/Minerals/Vitamins A, C & E Tab PO SCH (08:51)
[2016-06-29] MEDS: Acetaminophen 650 MG Tab.ER PO SCH ×3 (08:51→21:35)
[2016-06-29] MEDS: Magnesium Hydroxide 400 MG/5 ML Susp 30 ML Cup PO SCH ×2 (08:51→21:44)
[2016-06-29] MEDS: Ascorbic Acid 500 MG Tab PO SCH (08:52)
--- NOTE | 2016-06-29 11:27 | PCM.PN ---
- General Info Date of Service: 06/29/16 Functional Status: Reports: tolerating diet, ambulating, urinating. Denies: pain controlled, new symptoms Pain Score: 4 (Frontal headache, however improved.) - Review of Systems General: Reports: Appetite (good). Denies: Fever, Chills HEENT: Reports: headaches, visual changes (blurred vision to right eye, no change). Denies: eye pain Pulmonary: Denies: shortness of breath Cardiovascular: Denies: Chest Pain Neurological: Reports: Headache. Denies: Trouble Speaking, Difficulty Walking Psychiatric: Reports: anxiety. Denies: confusion - Patient Data Vitals - most recent: Last Vital Signs Temp 98.0 F 06/29/16 06:15 Pulse 82 06/29/16 06:15 Resp 16 06/29/16 06:15 BP 112/63 06/29/16 06:15 Pulse Ox 92 L 06/29/16 06:15 Weight - most recent: 180 lb 3.2 oz I&O - last 24 hours: Intake & Output 06/28/16 06/29/16 06/29/16 22:59 06:59 14:59 Intake Total 600 100 Output Total 200 300 Balance 400 -200 Lab Results last 24 hrs: Laboratory Results - last 24 hr 06/28/16 06/28/16 06/28/16 Range/Units 11:37 17:53 21:39 POC Glucose 268 H 188 H 246 H (74-106) mg/dl 06/29/16 Range/Units 06:18 POC Glucose 149 H (74-106) mg/dl Med Orders - Current: Current Medications Acetaminophen (Tylenol Arthritis Pain) 650 mg PO TID COUNTS INCLUDE 234 BEDS AT THE [facility] Last Admin: 06/29/16 08:51 Dose: 650 mg Ascorbic Acid (Vitamin C) 500 mg PO DAILY COUNTS INCLUDE 234 BEDS AT THE [facility] Last Admin: 06/29/16 08:52 Dose: 500 mg Calcium Carbonate/Glycine (Tums) 1,000 mg PO Q6H PRN PRN Reason: Indigestion Ketoprofen 12 gm/ Menthol 1.8 gm/ Trolamine Salicylate 46.2 gm 0 gm TOP ASDIRECTED PRN PRN Reason: neck pain Last Admin: 06/28/16 15:12 Dose: 1 shalonda Cyanocobalamin (Vitamin B12) 500 mcg PO 1200 COUNTS INCLUDE 234 BEDS AT THE [facility] Last Admin: 06/28/16 12:23 Dose: 500 mcg Methylprednisolone Sodium Succinate 1,000 mg/ Sodium Chloride 66 mls @ 66 mls/ hr IV Q24H COUNTS INCLUDE 234 BEDS AT THE [facility] Stop: 06/29/16 20:01 Last Admin: 06/28/16 19:17 Dose: 66 mls/hr Insulin Aspart (Novolog) 0 unit SUBCUT WITHMEALSANDBED COUNTS INCLUDE 234 BEDS AT THE [facility] PRN Reason: Protocol Last Admin: 06/29/16 07:39 Dose: Not Given Insulin Detemir (Levemir) 15 unit SUBCUT BID COUNTS INCLUDE 234 BEDS AT THE [facility] Last Admin: 06/29/16 08:50 Dose: 15 units Ketorolac Tromethamine (Toradol) 15 mg IVPUSH Q8H PRN PRN Reason: Pain Stop: 06/30/16 19:43 Last Admin: 06/29/16 00:40 Dose: 15 mg Magnesium Hydroxide (Milk Of Magnesia) 30 ml PO BID COUNTS INCLUDE 234 BEDS AT THE [facility] Last Admin: 06/29/16 08:51 Dose: 30 ml Metformin HCl (Glucophage) 1,000 mg PO BIDMEALS COUNTS INCLUDE 234 BEDS AT THE [facility] Last Admin: 06/29/16 08:49 Dose: 1,000 mg Multivitamins/Minerals (Ocuvite) 1 each PO DAILY COUNTS INCLUDE 234 BEDS AT THE [facility] Last Admin: 06/29/16 08:51 Dose: 1 each Nicotine (Habitrol) 7 mg TRDERM DAILY COUNTS INCLUDE 234 BEDS AT THE [facility] Last Admin: 06/29/16 08:49 Dose: 7 mg Omeprazole (Omeprazole) 20 mg PO BEDTIME COUNTS INCLUDE 234 BEDS AT THE [facility] Last Admin: 06/28/16 21:44 Dose: 20 mg Sodium Chloride (Syrex Flush) 5 ml FLUSH Q8HR PRN PRN Reason: Keep Vein Open Last Admin: 06/29/16 00:43 Dose: 5 ml Tramadol HCl (Ultram) 50 mg PO BID PRN PRN Reason: Pain Last Admin: 06/29/16 00:39 Dose: 50 mg Discontinued Medications Acetaminophen (Tylenol) 325 mg PO Q4H PRN PRN Reason: Pain Ascorbic Acid (Vitamin C) 500 mg PO DAILY COUNTS INCLUDE 234 BEDS AT THE [facility] Aspirin (Halfprin) 81 mg PO WITHBREAKFAST COUNTS INCLUDE 234 BEDS AT THE [facility] Last Admin: 06/28/16 19:33 Dose: Not Given Aspirin (Halfprin) 81 mg PO DAILY COUNTS INCLUDE 234 BEDS AT THE [facility] Bisacodyl (Dulcolax) 10 mg RECTAL ONETIME ONE Stop: 06/28/16 16:41 Last Admin: 06/28/16 16:47 Dose: 10 mg Bisacodyl (Dulcolax) Confirm Administered Dose 10 mg .ROUTE .STK-MED ONE Stop: 06/28/16 16:42 Last Admin: 06/28/16 16:47 Dose: Not Given Cyanocobalamin (Vitamin B12) 500 mcg PO DAILY COUNTS INCLUDE 234 BEDS AT THE [facility] Methylprednisolone Sodium Succinate 1,000 mg/ Sodium Chloride 58 mls @ 58 mls/ hr IV Q24H COUNTS INCLUDE 234 BEDS AT THE [facility] Last Admin: 06/27/16 19:19 Dose: 58 mls/hr Insulin Aspart (Novolog) 0 unit SUBCUT QIDACANDBED COUNTS INCLUDE 234 BEDS AT THE [facility] PRN Reason: Protocol Last Admin: 06/28/16 12:21 Dose: 6 units Insulin Detemir (Levemir) 0 unit SUBCUT BID COUNTS INCLUDE 234 BEDS AT THE [facility] Last Admin: 06/28/16 08:03 Dose: 12 units Insulin Detemir (Levemir) 12 unit SUBCUT BID COUNTS INCLUDE 234 BEDS AT THE [facility] Ketorolac Tromethamine (Toradol) 30 mg IVPUSH Q6H PRN PRN Reason: Headache Stop: 07/02/16 17:53 Lorazepam (Ativan) 0.25 mg PO ONETIME ONE Stop: 06/28/16 16:31 Last Admin: 06/28/16 16:46 Dose: 0.25 mg Lorazepam (Ativan) Confirm Administered Dose 0.5 mg .ROUTE .STK-MED ONE Stop: 06/28/16 16:31 Last Admin: 06/28/16 16:34 Dose: Not Given Metformin HCl (Glucophage Xr) 1,000 mg PO BIDMEALS COUNTS INCLUDE 234 BEDS AT THE [facility] Last Admin: 06/28/16 08:03 Dose: 1,000 mg Non-Formulary Medication (Omeprazole [Prilosec]) 20 mg PO BEDTIME COUNTS INCLUDE 234 BEDS AT THE [facility] Non-Formulary Medication (Metformin Hcl [Metformin Hcl]) 1,000 mg PO BID COUNTS INCLUDE 234 BEDS AT THE [facility] - Exam Quality Assessment: No: supplemental oxygen, DVT prophylaxis (Score of 1) General: alert, oriented, cooperative, no acute distress HEENT: Pupils equal, Pupils reactive, Mucous membr. moist/pink Neck: supple. No: lymphadenopathy Lungs: Clear to auscultation, Normal respiratory effort Cardiovascular: Regular Rate, Regular Rhythm, No Murmurs Skin: warm, dry, other (right temporal incision site intact, no erythema or drainage) Neurological: no new focal deficit, normal speech, strength equal bilateral, cranial nerves intact Psy/Mental Status: alert, normal affect, normal mood - Problem List Review Problem List Initiated/Reviewed/Updated: Yes - My Orders Last 24 Hours: My Active Orders 06/28/16 12:00 Cyanocobalamin (Vitamin B12) [Vitamin B12] 500 mcg PO 1200 06/28/16 18:00 Insulin Aspart [NovoLOG] 0 unit SUBCUT WITHMEALSANDBED 06/29/16 11:02 Vital Signs [RC] 0700,1500,2300 - Plan Plan:: PRIMARY IMPRESSION/PLAN: Frontal headache with right vision disturbance, possible giant cell arteritis. This is improving. Temporal artery biopsy pending. Patient will receive 3rd and final dose of solumedrol 1000 mg IV this evening. He is then to be placed on oral prednisone 60 mg daily until biopsy report is back per neurology. May continue tramadol, toradol, and tylenol arthritis. Continue to hold aspirin. Continue to give Tums for GI protection. Type 2 diabetes mellitus. Continue accuchecks QID. Continue levimir 15 units BID and sliding scale novolog. Continue metformin. Glucose 149 this AM. Anxiety, question relation to high-dose steroids and tobacco dependency. Will add PRN oral lorazepam. SECONDARY IMPRESSION/PLAN: Hypertension, stable. No on any medication for this. History of TIA. Holding aspirin due to possible GI upset from steroids. Hypercholesterolemia. Tobacco dependency (chew). Continue low dose nicotine patch. History of primary prostate adenocarcinoma. Not currently receiving treatment for this. Recently had cautery of blood vessels in the prostate. He is to see urology as outpatient. Overall plan: Patient will receive last IV steriod dose this evening. Continue to monitor blood sugars and correct with insulin. Continue to monitor for any focal neurologic deficits. Patient should be able to be discharged home tomorrow on oral prednisone. The treatment plan was reviewed with Dr. Alan. He is in agreement with the plan of care.
[2016-06-29] MEDS ORDERED: LORazepam 0.5 MG Tab PO PRN (11:29)
[2016-06-29] MEDS: Cyanocobalamin (Vitamin B12) 500 MCG Tab PO SCH (11:53)
[2016-06-29] MEDS: Calcium Carbonate 500 MG Tab.Chew PO PRN ×2 (18:51→21:48)
[2016-06-29] MEDS: Omeprazole 20 MG Cap.CR PO SCH (21:35)
[2016-06-29] MEDS: 20% Ketoprofen 12 GM, 3% Menthol 1.8 GM & 8% Trolamine Salicylate 46.2 GM TOP PRN ×3 (21:51)
[2016-06-30] MEDS: traMADol 50 MG Tab PO PRN ×2 (00:39→08:50)
[2016-06-30] MEDS: Insulin Aspart 100 Units/ML 3 ML Pen SUBCUT SCH ×4 (07:34→21:00)
[2016-06-30] MEDS: Ketorolac 30 MG/ML SDV IVPUSH PRN (07:38)
[2016-06-30] MEDS: Sodium Chloride 0.9% 5 ML Syringe FLUSH PRN ×2 (07:39→14:42)
[2016-06-30] MEDS: metFORMIN 500 MG Tab PO SCH ×2 (08:46→18:02)
[2016-06-30] MEDS: Insulin Detemir 100 Units/ML 3 ML Pen SUBCUT SCH ×2 (08:47→20:57)
[2016-06-30] MEDS: Nicotine 7 MG/24 Hr Patch TRDERM SCH (08:47)
[2016-06-30] MEDS: Magnesium Hydroxide 400 MG/5 ML Susp 30 ML Cup PO SCH ×2 (08:48→20:57)
[2016-06-30] MEDS: Ascorbic Acid 500 MG Tab PO SCH (08:49)
[2016-06-30] MEDS: Lutein/Minerals/Vitamins A, C & E Tab PO SCH (08:49)
[2016-06-30] MEDS: Acetaminophen 650 MG Tab.ER PO SCH ×3 (08:49→20:54)
[2016-06-30] MEDS: LORazepam 0.5 MG Tab PO SCH ×2 (11:28→20:52)
[2016-06-30] MEDS: Celecoxib 100 MG Cap PO SCH (11:28)
[2016-06-30] MEDS: Gabapentin 300 MG Cap PO SCH ×3 (11:29→20:57)
--- NOTE | 2016-06-30 11:36 | PCM.PN ---
- General Info Date of Service: 06/30/16 Functional Status: Reports: tolerating diet, ambulating, urinating. Denies: pain controlled Pain Score: 5 (Reports worse than yesterday.) - Review of Systems General: Reports: Other (Slept poorly last night). Denies: Fever HEENT: Reports: glasses, headaches (frontal), visual changes (right eye-blurred) . Denies: eye pain, sinus congestion Pulmonary: Denies: shortness of breath Cardiovascular: Denies: Chest Pain Gastrointestinal: Denies: Abdominal pain, Nausea Neurological: Reports: Headache. Denies: Trouble Speaking, Difficulty Walking Psychiatric: Reports: anxiety, cravings (chewing tobacco) - Patient Data Vitals - most recent: Last Vital Signs Temp 97.4 F 06/30/16 07:00 Pulse 83 06/30/16 07:00 Resp 16 06/30/16 07:00 BP 163/77 H 06/30/16 07:00 Pulse Ox 94 L 06/30/16 07:00 Weight - most recent: 180 lb 3.2 oz I&O - last 24 hours: Intake & Output 06/29/16 06/30/16 06/30/16 22:59 06:59 14:59 Intake Total 800 100 Output Total 400 1000 Balance 400 -900 Lab Results last 24 hrs: Laboratory Results - last 24 hr 06/29/16 06/29/16 06/29/16 Range/Units 11:34 17:37 21:32 POC Glucose 301 H 161 H 191 H (74-106) mg/dl Med Orders - Current: Current Medications Acetaminophen (Tylenol Arthritis Pain) 650 mg PO TID [facility] Last Admin: 06/30/16 08:49 Dose: 650 mg Ascorbic Acid (Vitamin C) 500 mg PO DAILY [facility] Last Admin: 06/30/16 08:49 Dose: 500 mg Calcium Carbonate/Glycine (Tums) 1,000 mg PO Q6H PRN PRN Reason: Indigestion Last Admin: 06/29/16 21:48 Dose: 1,000 mg Celecoxib (Celebrex) 200 mg PO DAILY [facility] Ketoprofen 12 gm/ Menthol 1.8 gm/ Trolamine Salicylate 46.2 gm 0 gm TOP ASDIRECTED PRN PRN Reason: neck pain Last Admin: 06/29/16 21:51 Dose: 1 shalonda Cyanocobalamin (Vitamin B12) 500 mcg PO 1200 [facility] Last Admin: 06/29/16 11:53 Dose: 500 mcg Gabapentin (Neurontin) 300 mg PO TID [facility] Insulin Aspart (Novolog) 0 unit SUBCUT WITHMEALSANDBED [facility] PRN Reason: Protocol Last Admin: 06/30/16 07:34 Dose: Not Given Insulin Detemir (Levemir) 15 unit SUBCUT BID [facility] Last Admin: 06/30/16 08:47 Dose: 15 units Lorazepam (Ativan) 0.25 mg PO BID [facility] Magnesium Hydroxide (Milk Of Magnesia) 30 ml PO BID [facility] Last Admin: 06/30/16 08:48 Dose: 30 ml Metformin HCl (Glucophage) 1,000 mg PO BIDMEALS [facility] Last Admin: 06/30/16 08:46 Dose: 1,000 mg Methylprednisolone Sodium Succinate (Solu-Medrol) 60 mg IVPUSH DAILY [facility] Multivitamins/Minerals (Ocuvite) 1 each PO DAILY [facility] Last Admin: 06/30/16 08:49 Dose: 1 each Nicotine (Habitrol) 7 mg TRDERM DAILY [facility] Last Admin: 06/30/16 08:47 Dose: 7 mg Omeprazole (Omeprazole) 20 mg PO BEDTIME [facility] Last Admin: 06/29/16 21:35 Dose: 20 mg Sodium Chloride (Syrex Flush) 5 ml FLUSH Q8HR PRN PRN Reason: Keep Vein Open Last Admin: 06/30/16 07:39 Dose: 5 ml Tramadol HCl (Ultram) 50 mg PO BID PRN PRN Reason: Pain Last Admin: 06/30/16 08:50 Dose: 50 mg Discontinued Medications Acetaminophen (Tylenol) 325 mg PO Q4H PRN PRN Reason: Pain Ascorbic Acid (Vitamin C) 500 mg PO DAILY [facility] Aspirin (Halfprin) 81 mg PO WITHBREAKFAST [facility] Last Admin: 06/28/16 19:33 Dose: Not Given Aspirin (Halfprin) 81 mg PO DAILY [facility] Bisacodyl (Dulcolax) 10 mg RECTAL ONETIME ONE Stop: 06/28/16 16:41 Last Admin: 06/28/16 16:47 Dose: 10 mg Bisacodyl (Dulcolax) Confirm Administered Dose 10 mg .ROUTE .STK-MED ONE Stop: 06/28/16 16:42 Last Admin: 06/28/16 16:47 Dose: Not Given Cyanocobalamin (Vitamin B12) 500 mcg PO DAILY [facility] Methylprednisolone Sodium Succinate 1,000 mg/ Sodium Chloride 58 mls @ 58 mls/ hr IV Q24H [facility] Last Admin: 06/27/16 19:19 Dose: 58 mls/hr Methylprednisolone Sodium Succinate 1,000 mg/ Sodium Chloride 66 mls @ 66 mls/ hr IV Q24H [facility] Stop: 06/29/16 20:01 Last Admin: 06/29/16 18:41 Dose: 66 mls/hr Insulin Aspart (Novolog) 0 unit SUBCUT QIDACANDBED [facility] PRN Reason: Protocol Last Admin: 06/28/16 12:21 Dose: 6 units Insulin Detemir (Levemir) 0 unit SUBCUT BID [facility] Last Admin: 06/28/16 08:03 Dose: 12 units Insulin Detemir (Levemir) 12 unit SUBCUT BID [facility] Ketorolac Tromethamine (Toradol) 30 mg IVPUSH Q6H PRN PRN Reason: Headache Stop: 07/02/16 17:53 Ketorolac Tromethamine (Toradol) 15 mg IVPUSH Q8H PRN PRN Reason: Pain Stop: 06/30/16 19:43 Last Admin: 06/30/16 07:38 Dose: 15 mg Lorazepam (Ativan) 0.25 mg PO ONETIME ONE Stop: 06/28/16 16:31 Last Admin: 06/28/16 16:46 Dose: 0.25 mg Lorazepam (Ativan) Confirm Administered Dose 0.5 mg .ROUTE .STK-MED ONE Stop: 06/28/16 16:31 Last Admin: 06/28/16 16:34 Dose: Not Given Lorazepam (Ativan) 0.25 mg PO BID PRN PRN Reason: Anxiety [facility] Last Admin: 06/28/16 08:03 Dose: 1,000 mg Non-Formulary Medication (Omeprazole [Prilosec]) 20 mg PO BEDTIME [facility] Non-Formulary Medication (Metformin Hcl [Metformin Hcl]) 1,000 mg PO BID [facility] - Exam Quality Assessment: DVT prophylaxis (Ruth Ann stockings). No: supplemental oxygen, urine catheter General: alert, oriented, cooperative, no acute distress HEENT: Other (no sinus tenderness elicited) Lungs: Clear to auscultation, Normal respiratory effort Cardiovascular: Regular Rate, Regular Rhythm, No Murmurs Back Exam: other (no cervical spine tenderness). No: muscle spasm Skin: warm, dry, intact, other (right temporal incision-edges approximated, no erythema or drainage) Neurological: no new focal deficit, normal speech Psy/Mental Status: alert, anxious, other (digusted ) - Problem List Review Problem List Initiated/Reviewed/Updated: Yes - My Orders Last 24 Hours: My Active Orders 06/29/16 11:02 Vital Signs [RC] 0700,1500,2300 06/30/16 09:03 Antiembolic Devices [RC] 0900,2100 RUTH ANN Hose [Antiembolic Hose] [OM.PC] Routine 06/30/16 10:00 Gabapentin [Neurontin] 300 mg PO TID 06/30/16 10:45 Celecoxib [CeleBREX] 200 mg PO DAILY LORazepam [Ativan] 0.25 mg PO BID 06/30/16 15:00 methylPREDNISolone Sod Succ [Solu-MEDROL] 60 mg IVPUSH DAILY - Plan Plan:: PRIMARY IMPRESSION/PLAN: Intractable frontal headache with right vision disturbance, possible giant cell arteritis. Temporal artery biopsy pending. Call placed to [facility] neurologist, Dr. Lomas, regarding patient's continued headache and reports of worsening pain. He advised trial of gabapentin 600 mg every 6 hours x 3 days, continue steroids as planned, and no further imagining required. Trial of gabapentin 300 mg po TID along with celebrex 200 mg daily. Continue scheduled tylenol and PRN tramadol. Question if patient's anxiety, tobacco dependency, and lack of sleep are worsening symptoms today. Decrease solumedrol to 60 mg IV daily. Blurred vision of right eye. Discussion with daughter today reveals that patient is seeing Dr. Crowder for possible macular degeneration of this eye. Type 2 diabetes mellitus. Continue accuchecks QID. Continue metformin, levimir 15 units BID and sliding scale novolog. Glucose 191 this AM requiring 2 units of novolog. Anxiety, most likely related to high-dose steroids, current health situation, and tobacco dependency. Will add lorazepam 0.25 mg po BID. Family requested medication for anxiety. May also need to consider daily anti-depressant as patient has numerous health issues. SECONDARY IMPRESSION/PLAN: Hypertension, stable. Not on any medication for this. History of TIA. Holding aspirin due to possible GI upset from steroids. Hypercholesterolemia. Tobacco dependency (chew). Continue low dose nicotine patch. History of primary prostate adenocarcinoma. Not currently receiving treatment for this. Recently had cautery of blood vessels in the prostate. He is to see urology as outpatient. GI prophylaxis: Continue Tums. Overall plan: Due to continued and worsening pain, will keep patient at least 1 more day. Will trial medications as mentioned above and decrease IV steroid dose. The treatment plan was reviewed with Dr. Alan. He is in agreement with the plan of care.
[2016-06-30] MEDS: Cyanocobalamin (Vitamin B12) 500 MCG Tab PO SCH (12:31)
[2016-06-30] MEDS: methylPREDNISolone Sodium Succinate 125 MG/2 ML SDV IVPUSH SCH (14:42)
[2016-06-30] MEDS: Omeprazole 20 MG Cap.CR PO SCH (20:53)
[2016-07-01 07:06] VITALS: BP 126/69
[2016-07-01] MEDS: metFORMIN 500 MG Tab PO SCH (07:57)
[2016-07-01] MEDS: Insulin Aspart 100 Units/ML 3 ML Pen SUBCUT SCH (07:57)
[2016-07-01] MEDS: Insulin Detemir 100 Units/ML 3 ML Pen SUBCUT SCH (08:00)
[2016-07-01] MEDS: Gabapentin 300 MG Cap PO SCH (08:00)
[2016-07-01] MEDS: Ascorbic Acid 500 MG Tab PO SCH (08:03)
[2016-07-01] MEDS: Celecoxib 100 MG Cap PO SCH (08:03)
[2016-07-01] MEDS: Acetaminophen 650 MG Tab.ER PO SCH (08:04)
[2016-07-01] MEDS: Lutein/Minerals/Vitamins A, C & E Tab PO SCH (08:04)
[2016-07-01] MEDS: LORazepam 0.5 MG Tab PO SCH (08:05)
[2016-07-01] MEDS: Magnesium Hydroxide 400 MG/5 ML Susp 30 ML Cup PO SCH (08:10)
[2016-07-01] MEDS: Nicotine 7 MG/24 Hr Patch TRDERM SCH (08:16)
[2016-07-01] MEDS: methylPREDNISolone Sodium Succinate 125 MG/2 ML SDV IVPUSH SCH (08:25)
--- NOTE | 2016-07-02 08:43 | DISCH ---
FINAL DIAGNOSES: 1. Rule out giant cell arteritis with frontal headache, biopsy taken, still pending. 2. 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 Crowder, straightener and aligner. 3. Intractable headache, much improved. 4. Anxiety, possibly due to high-dose steroids, also with tobacco dependency, added lorazepam. SECONDARY IMPRESSION: 1. Hypertension, this is stable. 2. History of transient ischemic attack, we will place back on aspirin as this could benefit if he does have giant cell arteritis. 3. Hypercholesterolemia. 4. Tobacco dependency. 5. Primary history of prostate adenocarcinoma. BRIEF HISTORY: This is a patient who has been having on and off frontal-type headaches for several weeks now. He does describe them as going back as long as a month. He had been admitted for possible giant cell arteritis and intractable headache, biopsy of his right temporal artery was performed at the [facility] by Dr. Alegria, that result of the pathology report is still pending. He was hospitalized for high-dose IV steroids. HOSPITAL COURSE: The patient's hospital course went well. He did have periods where he had improvement in his headache. Neurology was consulted, they did recommend high-dose steroids, 1 g Solu-Medrol IV for 3 days, then placed on oral prednisone of 60 until biopsy report was back. Neurology also recommended gabapentin 300 mg t.i.d.; this did seem to improve his headache quite a bit. He was placed on Ativan due to some mild anxiety, 0.25 mg p.o. b.i.d. He never had any neurological deficit other than he does have some visual acuity deficits mildly in his right eye, he is to see an straightener and aligner, Dr. Crowder, for this. He was placed on Tylenol Arthritis, tramadol, and nonsteroidal of Toradol. The patient did have a recent ESR of 39. He did have a recent head CT, it was negative for any acute changes other than some age-related changes. He had no prior histories of headaches. PHYSICAL EXAMINATION: VITAL SIGNS: The patient is alert and oriented. LUNGS: Clear to auscultation. CV: Regular rate and rhythm. NEUROLOGIC: The patient has no neurological deficits, tracking well, ambulatory well. He denies any headache as far as discharge. LABORATORY DATA: Labs on discharge, glucose 170. MEDICATIONS: Gabapentin 300 mg p.o. t.i.d. for 3 days; Rup Rub/nonsteroidal cream, back and neck b.i.d. p.r.n.; lorazepam 0.25 mg p.o. b.i.d. p.r.n. for anxiety; and prednisone 60 mg p.o. daily (until temporal artery biopsy returns). DISPOSITION: The patient will be discharged from the hospital. He is to follow up with me next week. He does have a cystoscopy appointment this week in the [facility]. He is supposed to report any neurological deficits, decreased visual acuities, worsening headache, any weakness, he is not to drive until followup. RECOMMENDATIONS AT FOLLOWUP: Follow up on temporal artery biopsy. The patient may need aspirin 100 mg if giant cell arteritis is positive. MEDICAL DECISION MAKING: Sixty-two minutes was spent on discharge planning. /[id number]/MODL MTDD
== END 2016-07-01 10:45 | disposition home or self-care (01) | DRG 547 ==
LOC: KA.MS 17:31
PROVIDERS: ADMIT Nurse Practitioner Family; ATTEND Nurse Practitioner Family
DX: M31.6 Other giant cell arteritis (principal); R51 Headache; H54.61 Unqualified visual loss, right eye, normal vision left eye; H35.30 Unspecified macular degeneration; F41.9 Anxiety disorder, unspecified; F17.200 Nicotine dependence, unspecified, uncomplicated; E11.9 Type 2 diabetes mellitus without complications; I10 Essential (primary) hypertension; E78.00 Pure hypercholesterolemia, unspecified; Z86.73 Personal history of transient ischemic attack (TIA), and cerebral infarction without residual deficits; Z85.46 Personal history of malignant neoplasm of prostate; Z79.52 Long term (current) use of systemic steroids; Z79.899 Other long term (current) drug therapy
CPT/HCPCS: 36415; 80048; 80053; 82962; 85025; A9270-GY; J1815-GY; J1885; J2930; J7050

== ENCOUNTER 2016-09-06 23:37 | Emergency (ER) | payer MEDICARE, OTHER ==
--- NOTE | 2016-09-06 23:47 | EDM.PDOC ---
ED HPI GENERAL MEDICAL PROBLEM - General Stated Complaint: Hematuria Time Seen by Provider: 09/06/16 23:37 Source of Information: Reports: Patient History Limitations: Reports: No Limitations - History of Present Illness INITIAL COMMENTS - FREE TEXT/NARRATIVE: Patient presents with blood in his urine tonight when he got up from bed to urinate. He hasn't had any other bleeding recently but has had an episode of this in the past, at least a year ago he thinks. He denies dysuria or flank pain. He doesn't think he is on any blood thinners. - Related Data Allergies Allergy/AdvReac Type Severity Reaction Status Date / Time No Known Drug Allergies Allergy Other Verified 09/06/16 23:46 Home Meds: Home Meds Aspirin [Halfprin] 81 mg PO DAILY 07/25/13 [History] Omeprazole [Prilosec] 20 mg PO BEDTIME 07/25/13 [History] Cyanocobalamin (Vitamin B-12) [B-12] 500 mcg PO DAILY 12/21/13 [History] Insulin Aspart [Novolog Flexpen] 8 units SUBCUT ACBREAKFAST 09/22/14 [History] Insulin Detemir [Levemir Flextouch] 12 units SQ BID 05/28/16 [History] Ascorbic Acid [Vitamin C] 500 mg PO DAILY 06/14/16 [History] Leuprolide [Lupron Dep[place] 3-Month] 22.5 mg IM Q3M 06/14/16 [History] Acetaminophen 1 - 2 tab PO Q6H PRN 06/28/16 [History] Lutein/Minerals/Vit A,C & E [Ocuvite] 1 tab PO DAILY 06/28/16 [History] Magnesium Hydroxide [Milk of Magnesia] 30 ml PO BID 06/28/16 [History] metFORMIN [Glucophage] 1,000 mg PO BIDMEALS 06/28/16 [History] traMADol [Ultram] 50 mg PO BID PRN 06/28/16 [History] LORazepam 0.25 mg PO BID PRN #15 tablet 07/01/16 [Rx] Past Medical History HEENT History: Reports: Impaired Vision Cardiovascular History: Reports: Hypertension Gastrointestinal History: Reports: GERD Genitourinary History: Reports: Other (See Below) Other Genitourinary History: hematuria, h/o prostate ca Musculoskeletal History: Reports: Arthritis Neurological History: Reports: Other (See Below) Other Neuro History: "forgetful" 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 Had abdominal surgery for it. - Past Surgical History HEENT Surgical History: Reports: None, Other (See Below) Male Surgical History: Reports: Other (See Below) Social & Family History - Family History Family Medical History: Noncontributory - Tobacco Use Smoking Status *Q: Current Every Day Smoker Years of Tobacco use: 70 Packs/Tins Daily: 0.5 Used Tobacco, but Quit: No Second Hand Smoke Exposure: No - Caffeine Use Caffeine Use: Reports: Coffee, Soda, Tea - Alcohol Use Days Per Week of Alcohol Use: 7 Number of Drinks Per Day: 1 Total Drinks Per Week: 7 - Recreational Drug Use Recreational Drug Use: No - Living Situation & Occupation Living situation: Reports: Occupation: Retired ED ROS GENERAL - Review of Systems Review Of Systems: See Below Constitutional: Denies: Fever, Chills, Weakness HEENT: Denies: Nosebleed, Vision Change Respiratory: Denies: Shortness of Breath, Cough Cardiovascular: Denies: Chest Pain, Lightheadedness, Syncope Endocrine: Denies: Fatigue GI/Abdominal: Denies: Abdominal Pain, Black Stool, Bloody Stool, Constipation, Diarrhea, Nausea, Vomiting : Reports: Hematuria. Denies: Discharge, Dysuria, Flank Pain, Frequency Musculoskeletal: Reports: No Symptoms Skin: Denies: Cyanosis, Jaundice, Mottled, Pallor, Diaphoresis Neurological: Denies: Confusion, Dizziness, Syncope, Weakness Psychiatric: Denies: Agitation, Anxiety, Confusion Hematologic/Lymphatic: Denies: Anemia, Easy Bleeding ED EXAM, RENAL/ - Physical Exam Exam: See Below Exam Limited By: No Limitations General Appearance: Alert, WD/WN, No Apparent Distress Eye Exam: Bilateral Eye: EOMI, Normal Inspection, PERRL Ears: Normal External Exam, Hearing Grossly Normal Nose: Normal Inspection, No Blood Throat/Mouth: Normal Inspection, Normal Lips, Normal Voice, No Airway Compromise Head: Atraumatic, Normocephalic Neck: Normal Inspection, Supple, Non-Tender, Full Range of Motion Respiratory/Chest: No Respiratory Distress, Lungs Clear, Normal Breath Sounds, No Accessory Muscle Use Cardiovascular: Normal Peripheral Pulses, Regular Rate, Rhythm, No Murmur GI/Abdominal: Normal Bowel Sounds, Soft, Non-Tender, No Organomegaly, No Distention Back Exam: Normal Inspection, Full Range of Motion. No: CVA Tenderness (L), CVA Tenderness (R) Extremities: Normal Inspection, Normal Range of Motion Neurological: Alert, Oriented, Normal Cognition, No Motor/Sensory Deficits Psychiatric: Normal Affect, Normal Mood Skin Exam: Warm, Dry, Intact, Normal Color, No Rash Course - Vital Signs Last Recorded V/S: Last Vital Signs Temp 97.5 F 09/06/16 23:49 Pulse 82 09/06/16 23:49 Resp 18 09/06/16 23:49 BP 148/77 H 09/06/16 23:49 Pulse Ox 95 09/06/16 23:49 - Orders/Labs/Meds Labs: Laboratory Tests 09/06/16 Range/Units 23:45 Specimen Type Urincc Urine Color Red H (YELLOW) Urine Appearance Turbid H (CLEAR) Urine pH 8.5 (5.0-9.0) Ur Specific [place] 1.015 (1.005-1.030) Urine Protein >=300 H (NEGATIVE) mg/dL Urine Glucose (UA) 250 H (NEGATIVE) mg/dL Urine Ketones 15 H (NEGATIVE) mg/dL Urine Occult Blood Large H (NEGATIVE) Urine Nitrite Positive H (NEGATIVE) Urine Bilirubin Large H (NEGATIVE) Urine Urobilinogen 2.0 H (0.2-1.0) E.U./dL Ur Leukocyte Esterase Large H (NEGATIVE) Urine RBC Packed /HPF Urine WBC Not seen /HPF - Re-Assessments/Exams Free Text/Narrative Re-Assessment/Exam: 09/07/16 00:23 UA shows blood, nitrites, leukocyte esterase. Discussed findings and treatment plan with patient along with the need for follow up with his PCP and a urology referral. Patient agrees to this. First dose of Cipro is administered in ER tonight. Patient is discharged in stable condition. Departure - Departure Time of Disposition: 00:20 Disposition: Home, Self-Care 01 Condition: Good Clinical Impression: UTI (urinary tract infection) Qualifiers: Urinary tract infection type: site unspecified Hematuria presence: with hematuria Qualified Code(s): N39.0 - Urinary tract infection, site not specified ; R31.9 - Hematuria, unspecified - Discharge Information Additional Instructions: 1. Take Cipro every 12 hours as directed for one week. 2. Follow up with your PCP in a week for recheck and to set up a referral to urology for the urine bleeding.
[2016-09-06 23:52] VITALS: BP 148/77
[2016-09-07] MEDS: Ciprofloxacin 250 MG Tab PO SCH ×2 (00:15→00:20)
[2016-09-07] MEDS ORDERED: Ciprofloxacin 250 MG Tab ONE (00:16)
== END 2016-09-07 00:20 | disposition home or self-care (01) ==
LOC: KA.ED 23:37
DX: N39.0 Urinary tract infection, site not specified (principal); R31.9 Hematuria, unspecified; H54.7 Unspecified visual loss; I10 Essential (primary) hypertension; K21.9 Gastro-esophageal reflux disease without esophagitis; M19.90 Unspecified osteoarthritis, unspecified site; E11.9 Type 2 diabetes mellitus without complications; F17.210 Nicotine dependence, cigarettes, uncomplicated; Z79.82 Long term (current) use of aspirin; Z79.4 Long term (current) use of insulin
CPT/HCPCS: 81001; 87086; 99283; A9270

== ENCOUNTER 2016-10-11 17:06 | Emergency (ER) | payer MEDICARE, OTHER ==
[2016-10-11 17:25] VITALS: BP 164/79
--- NOTE | 2016-10-11 18:24 | EDM.PDOC ---
ED HPI GENERAL MEDICAL PROBLEM - General Chief Complaint: Abdominal Pain Stated Complaint: GUTS HURT Time Seen by Provider: 10/11/16 17:51 Source of Information: Reports: Patient History Limitations: Reports: No Limitations - History of Present Illness INITIAL COMMENTS - FREE TEXT/NARRATIVE: Patient presents with low abdominal pain that has been bothering him for weeks. It sounds like it waxes and wanes but the history is a little vague. He denies constipation and had BM this morning like usual. No vomiting or dysuria. He has been using a gas reliever and laxative some but doesn't think they are helping. Abdomen Pain Score (Numeric/FACES): 8 - Related Data Allergies Allergy/AdvReac Type Severity Reaction Status Date / Time No Known Drug Allergies Allergy Other Verified 10/11/16 17:25 Home Meds: Home Meds Aspirin [Halfprin] 81 mg PO DAILY 07/25/13 [History] Insulin Aspart [Novolog Flexpen] 10 units SUBCUT ACBREAKFAST 09/22/14 [History] Insulin Detemir [Levemir Flextouch] 15 units SQ BID 05/28/16 [History] Gabapentin [Neurontin] 300 mg PO BEDTIME 10/11/16 [History] Sennosides/Docusate Sodium [Senna S Tablet] 1 each PO DAILY 10/11/16 [History] Simethicone [Gas Relief] 125 mg PO BID 10/11/16 [History] busPIRone HCl [Buspirone HCl] 7.5 mg PO BID 10/11/16 [History] Past Medical History HEENT History: Reports: Impaired Vision Cardiovascular History: Reports: Hypertension Gastrointestinal History: Reports: GERD Genitourinary History: Reports: Other (See Below) Other Genitourinary History: hematuria, h/o prostate ca Musculoskeletal History: Reports: Arthritis Neurological History: Reports: Other (See Below) Other Neuro History: "forgetful" 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 Had abdominal surgery for it. - Past Surgical History HEENT Surgical History: Reports: None, Other (See Below) Male Surgical History: Reports: Other (See Below) Social & Family History - Family History Family Medical History: Noncontributory - Tobacco Use Smoking Status *Q: Current Every Day Smoker Years of Tobacco use: 50 Packs/Tins Daily: 0.2 Used Tobacco, but Quit: No Second Hand Smoke Exposure: No - Caffeine Use Caffeine Use: Reports: Coffee, Soda, Tea - Alcohol Use Days Per Week of Alcohol Use: 7 Number of Drinks Per Day: 1 Total Drinks Per Week: 7 - Recreational Drug Use Recreational Drug Use: No - Living Situation & Occupation Living situation: Reports: Occupation: Retired ED ROS GENERAL - Review of Systems Review Of Systems: See Below Constitutional: Denies: Fever, Malaise, Weakness, Decreased Appetite HEENT: Reports: No Symptoms Respiratory: Denies: Shortness of Breath, Wheezing, Cough Cardiovascular: Denies: Chest Pain, Lightheadedness, Syncope GI/Abdominal: Reports: Abdominal Pain. Denies: Constipation, Diarrhea, Stool Incontinence, Vomiting : Denies: Dysuria Musculoskeletal: Reports: No Symptoms Skin: Denies: Cyanosis, Jaundice, Mottled, Pallor, Diaphoresis Neurological: Denies: Confusion, Dizziness, Headache Psychiatric: Denies: Agitation, Anxiety, Confusion ED EXAM, GI/ABD - Physical Exam Exam: See Below Exam Limited By: No Limitations General Appearance: Alert, WD/WN, No Apparent Distress Eyes: Bilateral: Normal Appearance, EOMI Ears: Normal External Exam, Hearing Grossly Normal Nose: Normal Inspection, No Blood Throat/Mouth: Normal Inspection, Normal Lips, Normal Voice, No Airway Compromise Head: Atraumatic, Normocephalic Neck: Normal Inspection, Supple, Non-Tender, Full Range of Motion Respiratory/Chest: No Respiratory Distress, Lungs Clear, Normal Breath Sounds, No Accessory Muscle Use Cardiovascular: Normal Peripheral Pulses, Regular Rate, Rhythm, No Murmur GI/Abdominal Exam: Normal Bowel Sounds, Soft, No Organomegaly, Tender (mildly from navel to LLQ) Back Exam: Normal Inspection, Full Range of Motion. No: CVA Tenderness (L), CVA Tenderness (R) Extremities: Normal Inspection, Normal Range of Motion, No Pedal Edema Neurological: Alert, Oriented, Normal Cognition, No Motor/Sensory Deficits Psychiatric: Normal Affect, Normal Mood Skin Exam: Warm, Dry, Intact, Normal Color, No Rash Course - Vital Signs Last Recorded V/S: Last Vital Signs Temp 97.7 F 10/11/16 17:22 Pulse 84 08/18/17 17:22 Resp 18 10/11/16 17:22 BP 164/79 H 10/11/16 17:22 Pulse Ox 99 10/11/16 17:22 - Orders/Labs/Meds Orders: Active Orders 24 hr Category Date Time Status Abdomen 2V AP Upright Decub [CR] Stat Exams 10/11/16 18:00 Ordered CBC WITH AUTO DIFF [HEME] Stat Lab 10/11/16 18:00 Ordered COMPREHENSIVE METABOLIC PN,CMP [CHEM] Stat Lab 10/11/16 18:00 Ordered UA W/MICROSCOPIC [URIN] Stat Lab 10/11/16 18:00 Uncollected - Re-Assessments/Exams Free Text/Narrative Re-Assessment/Exam: 10/11/16 18:57 Labs okay. Xray shows some constipation in proximal colon. Discussed findings with patient and since an enema wouldn't likely help much with the proximal colon, I advised he drink a bottle of mag citrate tonight along with plenty of water. Patient discharged in stable condition. Departure - Departure Time of Disposition: 18:55 Disposition: Home, Self-Care 01 Condition: Good Clinical Impression: Abdominal pain Qualifiers: Abdominal location: lower abdomen, unspecified Qualified Code(s): R10.30 - Lower abdominal pain, unspecified Constipation Qualifiers: Constipation type: unspecified constipation type Qualified Code(s): K59.00 - Constipation, unspecified - Discharge Information Forms: ED Department Discharge Additional Instructions: 1. Drink a bottle of Mag Citrate tonight. You can pick it up at [employer]. 2. Drink 8 cups of water daily. 3. Follow up with your PCP next week for recheck if not improving. - My Orders Last 24 Hours: My Active Orders 10/11/16 18:00 Abdomen 2V AP Upright Decub [CR] Stat CBC WITH AUTO DIFF [HEME] Stat COMPREHENSIVE METABOLIC PN,CMP [CHEM] Stat UA W/MICROSCOPIC [URIN] Stat - Assessment/Plan Last 24 Hours: My Active Orders 10/11/16 18:00 Abdomen 2V AP Upright Decub [CR] Stat CBC WITH AUTO DIFF [HEME] Stat COMPREHENSIVE METABOLIC PN,CMP [CHEM] Stat UA W/MICROSCOPIC [URIN] Stat
== END 2016-10-11 19:05 | disposition home or self-care (01) ==
LOC: KA.ED 17:06
DX: K59.00 Constipation, unspecified (principal); R10.30 Lower abdominal pain, unspecified; M19.90 Unspecified osteoarthritis, unspecified site; I10 Essential (primary) hypertension; E11.9 Type 2 diabetes mellitus without complications; F17.210 Nicotine dependence, cigarettes, uncomplicated; K21.9 Gastro-esophageal reflux disease without esophagitis; Z79.82 Long term (current) use of aspirin; Z79.4 Long term (current) use of insulin
CPT/HCPCS: 36415; 74020; 80053; 81001; 85025; 99284

== ENCOUNTER 2016-11-12 16:40 | Emergency (ER) | payer MEDICARE, OTHER ==
[2016-11-12 16:52] VITALS: BP 138/72
--- NOTE | 2016-11-12 17:14 | EDM.PDOC ---
ED HPI GENERAL MEDICAL PROBLEM - General Chief Complaint: Chest Pain Stated Complaint: CHEST PAIN Time Seen by Provider: 11/12/16 17:07 Source of Information: Reports: Patient History Limitations: Reports: No Limitations - History of Present Illness INITIAL COMMENTS - FREE TEXT/NARRATIVE: PT PRESENTED TO CLINIC AND C/O CHEST PAIN. BROUGHT TO ER FOR EVALUATION. PT STATES THIS HAS BEEN GOING ON FOR ONE MONTH AND USING OILS FOR RELIEVE. HAS INTERMITTENT DISCOMFORT WITH VAGUE DESCRIPTION. [place]CEIV[place] OILS FROM [place] THAT HE THOUGHT WAS A DOCTOR. DENIES SOB, FEVER, N/V/D, HUNT, OR ANY TRAUMA Onset: Gradual Duration: Week(s): Location: Reports: Chest Quality: Reports: Other (NOT WELL DESCRIBED) Severity: Mild Improves with: Reports: Other (OILS HE RUBS ON CHEST) Worsens with: Reports: None Associated Symptoms: Reports: No Other Symptoms - Related Data Allergies Allergy/AdvReac Type Severity Reaction Status Date / Time No Known Drug Allergies Allergy Other Verified 11/12/16 16:53 Home Meds: Home Meds Aspirin [Halfprin] 81 mg PO DAILY 07/25/13 [History] Insulin Aspart [Novolog Flexpen] 8 units SUBCUT ACBREAKFAST 09/22/14 [History] Insulin Detemir [Levemir Flextouch] 15 units SQ BID 05/28/16 [History] Gabapentin [Neurontin] 600 mg PO BEDTIME 10/11/16 [History] Sennosides/Docusate Sodium [Senna S Tablet] 1 each PO DAILY 10/11/16 [History] Simethicone [Gas Relief] 125 mg PO BID 10/11/16 [History] busPIRone HCl [Buspirone HCl] 7.5 mg PO BID 10/11/16 [History] Past Medical History HEENT History: Reports: Impaired Vision Cardiovascular History: Reports: Hypertension Gastrointestinal History: Reports: GERD Genitourinary History: Reports: Other (See Below) Other Genitourinary History: hematuria, h/o prostate ca Musculoskeletal History: Reports: Arthritis Neurological History: Reports: Other (See Below) Other Neuro History: "forgetful" 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 Had abdominal surgery for it. - Past Surgical History HEENT Surgical History: Reports: None, Other (See Below) Male Surgical History: Reports: Other (See Below) Social & Family History - Family History Family Medical History: Noncontributory - Tobacco Use Smoking Status *Q: Current Every Day Smoker Years of Tobacco use: 50 Packs/Tins Daily: 0.2 Used Tobacco, but Quit: No Second Hand Smoke Exposure: No - Caffeine Use Caffeine Use: Reports: Coffee, Soda, Tea - Alcohol Use Days Per Week of Alcohol Use: 7 Number of Drinks Per Day: 1 Total Drinks Per Week: 7 - Recreational Drug Use Recreational Drug Use: No - Living Situation & Occupation Living situation: Reports: Occupation: Retired ED ROS GENERAL - Review of Systems Review Of Systems: ROS reveals no pertinent complaints other than HPI. Constitutional: Reports: No Symptoms HEENT: Reports: No Symptoms Respiratory: Reports: No Symptoms Cardiovascular: Reports: Chest Pain Endocrine: Reports: No Symptoms GI/Abdominal: Reports: No Symptoms : Reports: No Symptoms Musculoskeletal: Reports: No Symptoms Skin: Reports: No Symptoms Neurological: Reports: No Symptoms Psychiatric: Reports: No Symptoms Hematologic/Lymphatic: Reports: No Symptoms Immunologic: Reports: No Symptoms ED EXAM, GENERAL - Physical Exam Exam: See Below Exam Limited By: No Limitations General Appearance: Alert, WD/WN, No Apparent Distress Eye Exam: Bilateral Eye: Normal Inspection Nose: Normal Inspection, Normal Mucosa, No Blood Throat/Mouth: Normal Inspection, Normal Oropharynx, No Airway Compromise Head: Atraumatic, Normocephalic Neck: Normal Inspection, Supple, Non-Tender Respiratory/Chest: No Respiratory Distress, Lungs Clear, Normal Breath Sounds, No Accessory Muscle Use, Chest Non-Tender Cardiovascular: Regular Rate, Rhythm, No Murmur GI/Abdominal: Normal Bowel Sounds, Soft, Non-Tender Extremities: Normal Inspection, No Pedal Edema Neurological: Alert, Oriented, Normal Cognition Psychiatric: Normal Affect, Normal Mood Skin Exam: Warm, Dry, Intact, Normal Color, No Rash Lymphatic: No Adenopathy EKG INTERPRETATION EKG Date: 11/12/16 Time: 16:55 Rhythm: NSR [place]: Normal P-Wave: Present ST-T: Normal Comparison: NA - No Prior EKG Course - Vital Signs Last Recorded V/S: Last Vital Signs Temp 96.7 F 11/12/16 16:46 Pulse 86 11/12/16 16:46 Resp 21 H 11/12/16 16:46 BP 138/72 11/12/16 16:46 Pulse Ox 94 L 11/12/16 16:46 - Orders/Labs/Meds Orders: Active Orders 24 hr Category Date Time Status EKG Documentation Completion [RC] ASDIRECTED Care 11/12/16 16:46 Active CXR [Chest 2V] [CR] Stat Exams 11/12/16 16:45 Taken COMPREHENSIVE METABOLIC PN,CMP [CHEM] Stat Lab 11/12/16 16:51 Received LIPASE [CHEM] Stat Lab 11/12/16 16:51 Received TROPONIN I [CHEM] Stat Lab 11/12/16 16:51 Received EKG 12 Lead [EK] Routine Ther 11/12/16 16:45 Ordered Labs: Laboratory Tests 11/12/16 Range/Units 16:51 WBC 7.3 (5.0-10.0) 10^3/uL RBC 4.44 L (4.50-6.00) 10^6/uL Hgb 11.1 L (13.0-17.0) g/dL Hct 34.1 L (40.0-52.0) % MCV 76.8 L (82.0-92.0) fL MCH 24.9 L (27.0-31.0) pg MCHC 32.4 (32.0-36.0) g/dL RDW 17.8 H (11.5-14.5) % Plt Count 172 (150-300) 10^3/uL MPV 9.5 (7.4-10.4) fL Neut % (Auto) 53.1 (50.0-70.0) % Lymph % (Auto) 37.5 (20.0-40.0) % [place] % (Auto) 8.0 (2.0-8.0) % Eos % (Auto) 0.7 L (1.0-3.0) % Baso % (Auto) 0.7 (0.0-1.0) % Neut # (Auto) 3.8 (2.5-7.0) 10^3/uL Lymph # (Auto) 2.7 (1.0-4.0) 10^3/uL [place] # (Auto) 0.6 (0.1-0.8) 10^3/uL Eos # (Auto) 0.1 (0.1-0.3) 10^3/uL Baso # (Auto) 0.1 (0.0-0.1) 10^3/uL - Radiology Interpretation Free Text/Narrative:: CXR SHOWS COPD / NO ACUTE PROCESS - Re-Assessments/Exams Free Text/Narrative Re-Assessment/Exam: 11/12/16 17:31 PT AFEBRILE, NONTOXIC APPEARING, VSS, PAIN RELIEVED. ADVISED TO RETURN TO ER IF CP CONTINUES AND DO NOT RELY ON OILS FOR RELIEF Departure - Departure Time of Disposition: 17:33 Disposition: Home, Self-Care 01 Condition: Good Clinical Impression: Atypical chest pain, Costochondral chest pain Instructions: Nonspecific Chest Pain, [id number] Referrals: Zainab Amador MD [Primary Care Provider] - Additional Instructions: FOLLOW UP AT CLINIC IN NEXT 1-2 DAYS - My Orders Last 24 Hours: My Active Orders 11/12/16 16:45 CXR [Chest 2V] [CR] Stat EKG 12 Lead [EK] Routine 11/12/16 16:46 EKG Documentation Completion [RC] ASDIRECTED 11/12/16 16:51 COMPREHENSIVE METABOLIC PN,CMP [CHEM] Stat LIPASE [CHEM] Stat TROPONIN I [CHEM] Stat - Assessment/Plan Last 24 Hours: My Active Orders 11/12/16 16:45 CXR [Chest 2V] [CR] Stat EKG 12 Lead [EK] Routine 11/12/16 16:46 EKG Documentation Completion [RC] ASDIRECTED 11/12/16 16:51 COMPREHENSIVE METABOLIC PN,CMP [CHEM] Stat LIPASE [CHEM] Stat TROPONIN I [CHEM] Stat
[2016-11-12 17:27] LABS: CHLORIDE,CL 101 mmol/L (98-115); SODIUM,NA 138 mmol/L (136-145)
== END 2016-11-12 17:45 | disposition home or self-care (01) ==
LOC: KA.ED 16:40
DX: R07.1 Chest pain on breathing (principal); I10 Essential (primary) hypertension; K21.9 Gastro-esophageal reflux disease without esophagitis; M19.90 Unspecified osteoarthritis, unspecified site; E11.9 Type 2 diabetes mellitus without complications; F17.210 Nicotine dependence, cigarettes, uncomplicated; Z79.82 Long term (current) use of aspirin; Z79.4 Long term (current) use of insulin
CPT/HCPCS: 71020; 80053; 83690; 84484; 85025; 93005; 99284; 99285